=== PATIENT | female | born 1980 | race Caucasian/White ===

== ENCOUNTER 2018-08-24 08:00 | Outpatient (CLI) | payer BC | END 2018-08-24 09:00 | disposition home or self-care (01) | LOC: D.MAMMO 08:00 | DX: Z12.31 Encounter for screening mammogram for malignant neoplasm of breast (principal) ==

== ENCOUNTER → 2018-09-20 19:58 | Outpatient (CLI) | payer BC | END | disposition home or self-care (01) | LOC: D.MAMMO 09:30 | DX: R92.8 Other abnormal and inconclusive findings on diagnostic imaging of breast (principal) ==

== ENCOUNTER 2019-04-25 08:00 | Outpatient (CLI) | payer BC | END 2019-04-25 23:59 | disposition home or self-care (01) | LOC: D.MAMMO 08:00 | PROVIDERS: ATTEND Family Medicine | DX: R92.8 Other abnormal and inconclusive findings on diagnostic imaging of breast (principal) ==

== ENCOUNTER → 2020-03-19 12:32 | Outpatient (CLI) | payer BC | END | disposition home or self-care (01) | LOC: D.NM 08:00 | PROVIDERS: ATTEND Family Medicine | DX: K82.9 Disease of gallbladder, unspecified (principal) ==

== ENCOUNTER 2020-04-07 16:40 | Emergency (ER) | payer BC ==
[~2020-04-07] VITALS: Ht 160 cm; Wt 63.6 kg
[2020-04-07 16:52] VITALS: Ht 160 cm; Wt 63.6 kg
[2020-04-07 17:49] LABS: BASOPHILS 0.2 % (0-2); EOSINOPHILS 0.3 % (0-7); HEMOGLOBIN 13.3 g/dL (12-16); IMMATURE GRANULOCYTES 0.2 % (0-5); LYMPHOCYTES 11.1 % (15-50); MCH 30.9 pg (26.0-34.0); MCHC 33.3 g/dL (31.0-37.0); MEAN PLATELET VOLUME 10.9 fL (7.4-10.4); MONOCYTES 3.2 % (2-11); PLATELET COUNT 254 10x3/uL (130-400); RDW 11.8 % (11.5-14.5); WBC 11.7 10x3/uL (4.8-10.8)
[2020-04-07 18:01] LABS: CALC OSMOLALITY 281 mosm/kg (275-300); CALCIUM 8.9 mg/dL (8.5-10.1); CARBON DIOXIDE 29.8 mmol/L (21.0-32.0); CHLORIDE - SERUM 102 mmol/L (98-107); CREATININE - SERUM 1.1 mg/dL (0.6-1.3); GLUCOSE 126 mg/dL (74-106); POTASSIUM - SERUM 3.9 mmol/L (3.5-5.1); SODIUM 139 mmol/L (136-145); UREA NITROGEN 18 mg/dL (7-18); eGFR NON AFRICAN AMERICAN 58 mL/min (90-120)
[2020-04-07 18:05] LABS: BILIRUBIN NEGATIVE (NEGATIVE); GLUCOSE NEGATIVE (NEGATIVE); KETONE NEGATIVE (NEGATIVE); NITRITE NEGATIVE (NEGATIVE); UROBILINOGEN NORMAL (NORMAL)
[2020-04-07 18:07] LABS: BACTERIA MODERATE /hpf (NEGATIVE); EPITHELIAL CELLS 0-5 /hpf (0-5); RED CELLS - URINE 25-50 /hpf (0-5); WHITE CELLS - URINE OCC /hpf (NEGATIVE)
[2020-04-07 18:09] LABS: ALBUMIN 4.2 g/dL (3.4-5.0); ALKALINE PHOSPHATASE 34 U/L (30-120); ALT (SGPT) 33 U/L (10-68); AMYLASE - SERUM 63 U/L (25-115); BILIRUBIN - TOTAL 0.32 mg/dL (0.2-1.3); LIPASE 73 U/L (73-393); PROTEIN - SERUM 7.4 g/dL (6.4-8.2)
[2020-04-07 18:20] LABS: TROPONIN-I < 0.017 ng/mL (0.000-0.060)
[2020-04-07] MEDS ORDERED: TYLENOL W/CODEI1 TAB PO (19:32)
[2020-04-07] MEDS ORDERED: FLOMAX0.4 MG PO (19:32)
[2020-04-07] MEDS ORDERED: TORADOL10 MG PO (19:32)
[2020-04-07 20:22] VITALS: BP 113/68
== END 2020-04-07 20:23 | disposition home or self-care (01) ==
LOC: D.ER 16:40
PROVIDERS: Family Medicine
DX: N20.0 Calculus of kidney (principal); R10.32 Left lower quadrant pain; R11.2 Nausea with vomiting, unspecified

== ENCOUNTER 2020-04-21 06:10 | Day surgery (SDC) | payer BC ==
[~2020-04-21] VITALS: Ht 162.6 cm; Wt 66.7 kg
[~2020-04-21 06:10] MED LIST: FLOMAX0.4 MG PO; TORADOL10 MG PO; TYLENOL W/CODEI1 TAB PO
[2020-04-21 06:55] LABS: BASOPHILS 0.5 % (0-2); EOSINOPHILS 2.8 % (0-7); HEMATOCRIT 41.2 % (36.0-48.0); HEMOGLOBIN 13.8 g/dL (12-16); IMMATURE GRANULOCYTES 0.2 % (0-5); LYMPHOCYTES 38.4 % (15-50); MCH 31.2 pg (26.0-34.0); MCHC 33.5 g/dL (31.0-37.0); MCV 93.2 fL (80.0-100.0); MEAN PLATELET VOLUME 11.2 fL (7.4-10.4); MONOCYTES 6.9 % (2-11); NEUTROPHILS 51.2 % (40-80); RBC 4.42 10x6/uL (4.00-5.40); WBC 5.7 10x3/uL (4.8-10.8)
[2020-04-21 07:07] LABS: PLATELET COUNT 191 10x3/uL (130-400)
[2020-04-21 07:31] VITALS: BP 108/58; Ht 162.6 cm; Wt 66.7 kg
[2020-04-21 07:51] LABS: CALC OSMOLALITY 276 mosm/kg (275-300); CALCIUM 8.9 mg/dL (8.5-10.1); CARBON DIOXIDE 27.5 mmol/L (21.0-32.0); CHLORIDE - SERUM 105 mmol/L (98-107); CREATININE - SERUM 0.7 mg/dL (0.6-1.3); GLUCOSE 99 mg/dL (74-106); POTASSIUM - SERUM 4.1 mmol/L (3.5-5.1); SODIUM 139 mmol/L (136-145); UREA NITROGEN 11 mg/dL (7-18); eGFR NON AFRICAN AMERICAN > 90 mL/min (90-120)
[2020-04-21] MEDS ORDERED: HYDROCODON-ACE1 EA10 PO (08:45)
--- NOTE | 2020-04-21 09:29 | NUR ---
0928 ICE PACK PROVIDED, CALL LIGHT AT BEDSIDE.
--- NOTE | 2020-04-22 12:56 | OP ---
PATIENT NAME: KRISHNA GIBBONS MEDICAL RECORD: [id number] :76 LOCATION:D.OPS ADMISSION DATE: SURGEON: ZHOU ROLDAN MD DATE OF OPERATION: 04/21/2020 PREOPERATIVE DIAGNOSES: 1. Biliary dyskinesia. 2. Anxiety. 3. Kidney stones. POSTOPERATIVE DIAGNOSES: 1. Biliary dyskinesia. 2. Anxiety. 3. Kidney stones. PROCEDURE: Laparoscopic cholecystectomy. SURGEON: Zhou Roldan MD REPORT OF PROCEDURE: The patient's abdomen was prepped and draped in sterile fashion. A cutdown was made on the inferior aspect of the umbilicus. 0 Vicryls were placed on the fascia bilaterally and the fascia was incised with a 15-blade. I then bluntly entered the peritoneal cavity and placed a 12-mm Sheree port. Under direct visualization, a 5-mm trocar was placed in the epigastrium and 2 more 5-mm trocars were placed in the right subcostal region. The gallbladder was grasped and elevated. There were some chronic fatty adhesions present to the gallbladder and these were teased down carefully with blunt dissection. The cystic artery and cystic duct were dissected free and they were clipped proximally and distally and ligated in standard fashion. The gallbladder was taken off the liver bed using electrocautery and placed into the right upper quadrant. Any bleeding from the liver bed was then treated with electrocautery. The ports and insufflation were then removed and the gallbladder was taken out through the umbilicus. The umbilical fascia was closed with interrupted 0 Vicryls times 3. The wounds were then irrigated out with normal saline and infused with 10 mL of 0.25% Marcaine with epinephrine. The skin incisions were all closed with subcutaneous 5-0 Monocryl and dressed appropriately. COMPLICATIONS: None. CONDITION: Stable. ANESTHESIA: General endotracheal and local. BLOOD LOSS: Minimal. TRANSINT:[id number] Voice Confirmation ID: [id number] DOCUMENT ID: [id number] OPERATIVE REPORT [id number] JOVEL ZHOU ROLDAN MD at 1256 CC: [id number] DICTATION DATE: 04/21/20 0844 GARDE MANAGER: 04/21/20 1458 [facility] 04/21/20 [place] [id number]
== END 2020-04-21 11:10 | disposition home or self-care (01) ==
LOC: D.OPS 06:10
PROVIDERS: ATTEND Surgery
DX: K82.8 Other specified diseases of gallbladder (principal); F41.9 Anxiety disorder, unspecified; N20.0 Calculus of kidney